=== PATIENT | female | born 1990 | race Caucasian/White ===

== ENCOUNTER 2018-04-02 09:29 | Emergency (ER) | payer BC, OTHER ==
--- NOTE | 2018-04-02 09:46 | ER Document Report ---
ED Medical Screen (RME) - General Chief Complaint: Abdominal Pain Stated Complaint: STOMACH PAIN Time Seen by Provider: 04/02/18 09:35 Notes: 27-year-old female with history of endometriosis. Had surgery 6 months ago. Had appendix taken out as well as bilateral inguinal hernia and removal of endometrial tissue. Followed by classroom technology coach in [place]. Surgery was in [place]. Over the last several weeks has been noticing increased pain, change in bowel patterns and did notice some blood in her stool. Also having some right upper quadrant pain intermittent right-sided chest pain but no pain at this time. Denies any shortness of breath. No prior history of DVT or pulmonary embolism. I have greeted and performed a rapid initial assessment of this patient. A comprehensive ED assessment and evaluation of the patient, analysis of test results and completion of the medical decision making process will be conducted by additional ED providers. TRAVEL OUTSIDE OF THE [place] IN LAST 30 DAYS: No - Related Data Allergies/Adverse Reactions: drospirenone [From DEXTER 28] Allergy (Intermediate, Verified 04/02/18 09:31) rash ethinyl estradiol [From DEXTER 28] Allergy (Intermediate, Verified 04/02/18 09:31) rash tramadol [Tramadol] Allergy (Intermediate, Verified 04/02/18 09:31) rash Past Medical History Past Surgical History: Reports: Hx Gynecologic Surgery - laproscopy for endometriosis - Immunizations Hx Diphtheria, Pertussis, Tetanus Vaccination: No Review of Systems - Review of Systems Constitutional: denies: Fever, Malaise, Weakness Cardiovascular: Chest pain. denies: Palpitations, Heart racing Respiratory: denies: Cough, Hurts to breathe, Short of breath Gastrointestinal: Abdominal pain, Constipation, Rectal bleeding Genitourinary: denies: Burning, Dysuria, Discharge Female Genitourinary: See HPI Neurological/Psychological: See HPI Physical Exam - Vital signs Vitals: Temp Pulse Resp BP Pulse Ox 98.1 F 84 16 135/98 H 98 04/02/18 09:36 04/02/18 09:36 04/02/18 09:36 04/02/18 09:36 04/02/18 09:36 Interpretation: Normal - Respiratory Respiratory status: No respiratory distress Chest status: Nontender Breath sounds: Normal Chest palpation: Normal - Cardiovascular Rhythm: Regular Heart sounds: Normal auscultation Murmur: No - Abdominal Inspection: Normal Distension: No distension Bowel sounds: Normal Tenderness: Nontender Organomegaly: No organomegaly - Extremities General upper extremity: Normal inspection, Nontender, Normal color, Normal ROM , Normal temperature General lower extremity: Normal inspection, Nontender, Normal color, Normal ROM , Normal temperature, Normal weight bearing. No: Colin's sign Course - Vital Signs Vital signs: Temp Pulse Resp BP Pulse Ox 98.1 F 84 16 135/98 H 98 04/02/18 09:36 04/02/18 09:36 04/02/18 09:36 04/02/18 09:36 04/02/18 09:36 Doctor's Discharge - Discharge Referrals: SARINA BATISTA MD [Primary Care Provider] - Follow up as needed
--- NOTE | 2018-04-02 10:05 | ER Document Report ---
ED GI/ - General Chief Complaint: Abdominal Pain Stated Complaint: STOMACH PAIN Time Seen by Provider: 04/02/18 09:35 Mode of Arrival: Ambulatory Information source: Patient Notes: 27-year-old female with history of endometriosis. Had surgery 6 months ago. Had appendix taken out as well as bilateral inguinal hernia and removal of endometrial tissue with a sacral neurectomy. Followed by parquet floor layer in [place]. Surgery was in [place]. Patient states that her surgery was October 06. She states that she has had abdominal pain secondary to endometriosis since she was 7 years of age. Patient states since her surgery she has developed some mild epigastric intermittent abdominal discomfort. Patient states she was diagnosed by endoscopy 5 years ago with a gastric ulcer. She states she received treatment for this. She states some mild radiation to her back. She states slightly worse with food. She states a mild radiation to her chest. She states nausea without vomiting or fevers. She denies any diarrhea. Patient states she has a history of hemorrhoids and constipation and saw some blood encircling a light brown stool earlier today. She denies any pain with defecation. She denies any dysuria, lower abdominal masses, or fevers. TRAVEL OUTSIDE OF THE [place] IN LAST 30 DAYS: No - HPI Patient complains to provider of: Abdominal pain Onset: Other - See above Quality of pain: Achy, Other - See above Severity at maximum: Moderate Severity in ED: Mild Pain Level: 1 Context: Other - See above Location: Other - See above Vaginal bleeding (Compared to normal period): None OB ultrasound done: No vitamins taken: No Sexual history: Active Associated symptoms: Other - See above Exacerbated by: Denies Relieved by: Denies Similar symptoms previously: Yes Recently seen / treated by doctor: Yes - Related Data Allergies/Adverse Reactions: drospirenone [From DEXTER 28] Allergy (Intermediate, Verified 04/02/18 09:31) rash ethinyl estradiol [From DEXTER 28] Allergy (Intermediate, Verified 04/02/18 09:31) rash tramadol [Tramadol] Allergy (Intermediate, Verified 04/02/18 09:31) rash Past Medical History - General Information source: Patient - Social History Smoking Status: Never Smoker Cigarette use (# per day): No Chew tobacco use (# tins/day): No Smoking Education Provided: No Frequency of alcohol use: None Drug Abuse: None Family History: Reviewed & Not Pertinent Patient has suicidal ideation: No Patient has homicidal ideation: No Renal/ Medical History: Denies: Hx Peritoneal Dialysis Past Surgical History: Reports: Hx Gynecologic Surgery - laproscopy for endometriosis - Immunizations Hx Diphtheria, Pertussis, Tetanus Vaccination: No Review of Systems - Review of Systems Constitutional: denies: Fever EENT: denies: Eye discharge, Nose discharge Respiratory: denies: Short of breath Gastrointestinal: denies: Vomiting Genitourinary: denies: Dysuria Musculoskeletal: denies: Leg swelling Skin: Other - no hives. denies: Rash Neurological/Psychological: Other - no slurred speech -: Yes All other systems reviewed and negative Physical Exam - Vital signs Vitals: Temp Pulse Resp BP Pulse Ox 98.1 F 84 16 135/98 H 98 04/02/18 09:36 04/02/18 09:36 04/02/18 09:36 04/02/18 09:36 04/02/18 09:36 Notes: Reviewed vital signs and nursing note as charted by RN. CONSTITUTIONAL: Alert and oriented and responds appropriately to questions. Well -appearing; well-nourished HEAD: Normocephalic; atraumatic EYES: Sclerae non-icteric CARD: Regular rate and rhythm; no murmurs RESP: Normal chest excursion without splinting or tachypnea; breath sounds clear and equal bilaterally ABD/GI: Normal bowel sounds; non-distended; soft, mild tenderness to the epigastric region without any obvious rebound or guarding. Negative Kim sign. Minimal tenderness to bilateral lower quadrants without any obvious palpable masses or swelling noted. GI/: Patient has no obvious rectal perirectal lesions. No gross blood present. Hemoccult has been sent BACK: The back appears normal and is non-tender to palpation EXT: Normal ROM in all joints; non-tender to palpation, no edema SKIN: Normal color for age and race; warm; no acute lesions noted NEURO: Moves all extremities equally; Motor and sensory function intact PSYCH: The patient's mood and manner are appropriate. Grooming and personal hygiene are appropriate. Course - Re-evaluation Re-evalutation: 04/02/18 10:09 Given the above history and physical examination with the extensive history of multiple abdominal sources of pain, but the pain mostly pronounced in the epigastric region since her surgery in September, without fevers, no rebound or guarding, abdominal exam as recorded, we will obtain basic labs, liver panel, lipase, level, right upper quadrant ultrasound, and provide pain medications. Given the young age, long history as recorded, no focal lower abdominal tenderness, multiple CT scans in the past, I have discussed with the patient the risks and benefits of CT scan at this time. She would like to forego the CT scan and I believe that this is a reasonable option using shared decision making. 04/02/18 10:31 EKG shows heart of 72, normal sinus rhythm, normal axis, no ST elevation or depression. 04/02/18 11:47 Labs including liver panel, lipase, and urine analysis were unremarkable. Ultrasound of the abdomen and pelvis shows no obvious gallbladder pathology. Patient is requesting a CT scan of the abdomen and pelvis given her concern with her previous past history. 04/02/18 14:47 CT scan of the abdomen and pelvis again shows no obvious pathology. Repeat abdominal examination shows no focal tenderness. Patient states the pain is improved. Patient has a primary care physician and an UNDERWATER ROBOTICIST. Patient will be discharged home with strict return precautions. - Vital Signs Vital signs: Temp Pulse Resp BP Pulse Ox 98.1 F 84 16 135/98 H 98 04/02/18 09:36 04/02/18 09:36 04/02/18 09:36 04/02/18 09:36 04/02/18 09:36 - Laboratory Result Diagrams: 04/02/18 10:05 04/02/18 10:05 Laboratory results interpreted by me: 04/02/18 04/02/18 04/02/18 09:55 10:05 10:05 Hgb 16.2 H AST 48 H ALT 66 H Ur Leukocyte Esterase TRACE H Discharge - Discharge Clinical Impression: Abdominal pain Qualifiers: Abdominal location: unspecified location Qualified Code(s): R10.9 - Unspecified abdominal pain Condition: Good Disposition: HOME, SELF-CARE Additional Instructions: Come back immediately for any increased pain, change in location or quality of pain, fevers or vomiting, or any other acute problems. Please make sure that she follow-up with the primary care physician and UNDERWATER ROBOTICIST as we have discussed. Prescriptions: Hydrocodone/Acetaminophen [[place] 5-325 Tablet] 1 each PO Q6 PRN #12 tablet PRN Reason: For Pain Referrals: SARINA BATISTA MD [ACTIVE STAFF] - Follow up as needed
[2018-04-02] MEDS ORDERED: ONDANSETRON HCL INJ/PF 4 MG/2 ML SDV IV ONE ×2 (10:10→13:06)
[2018-04-02] MEDS ORDERED: MORPHINE SULFATE 10 MG/ML INJ IV ONE ×2 (10:10→13:43)
[2018-04-02] MEDS ORDERED: METOCLOPRAMIDE HCL ORAL SOLN 10 MG/10 ML UDCUP PO ONE (10:11)
[2018-04-02] MEDS ORDERED: LIDOCAINE 2% VISCOUS SOLN 20 ML UDCUP PO ONE (10:11)
[2018-04-02] MEDS ORDERED: MAG HYDROX/AL HYDROX/SIMETH SUSP 30 ML UDCUP PO ONE (10:11)
[2018-04-02 10:24] LABS: APPEARANCE,URINE CLEAR; BILIRUBIN,URINE NEGATIVE (NEGATIVE); GLUCOSE, URINE NEGATIVE (NEGATIVE); KETONES,URINE NEGATIVE (NEGATIVE); LEUKOCYTE ESTERASE,URINE TRACE (NEGATIVE); NITRITE,URINE NEGATIVE (NEGATIVE); PROTEIN,URINE NEGATIVE (NEGATIVE); URINE SPECIFIC GRAVITY 1.002; UROBILINOGEN,URINE NEGATIVE mg/dL (<2.0)
[2018-04-02 10:26] LABS: COLOR,URINE COLORLESS
[2018-04-02 10:33] LABS: ABSOLUTE EOSINOPHILS # (AUTO) 0.1 10^3/uL (0.0-0.6); ABSOLUTE LYMPHOCYTES (AUTO) 1.5 10^3/uL (0.5-4.7); ABSOLUTE MONOCYTES (AUTO) 0.4 10^3/uL (0.1-1.4); ABSOLUTE NEUT (AUTO) 4.7 10^3/uL (1.7-8.2); BASOPHILS % (AUTO) 0.5 % (0-2); EOSINOPHILS % (AUTO) 1.3 % (0-6); HEMATOCRIT 46.9 % (36.0-47.0); HEMOGLOBIN 16.2 g/dL (12.0-15.5); LYMPHOCYTES % (AUTO) 22.4 % (13-45); MEAN CORPUSCULAR HEMOGLOBIN 30.8 pg (27.0-33.4); MEAN CORPUSCULAR HGB CONC 34.5 g/dL (32.0-36.0); MEAN CORPUSCULAR VOLUME 89 fl (80-97); MONOCYTES % (AUTO) 6.2 % (3-13); PLATELET COUNT 278 10^3/uL (150-450); RED BLOOD COUNT 5.25 10^6/uL (3.72-5.28); RED CELL DISTRIBUTION WIDTH 12.7 % (11.5-14.0); SEGMENTED NEUTROPHILS % (AUTO) 69.6 % (42-78); TOTAL CELLS COUNTED % (AUTO) 100 %; WHITE BLOOD COUNT 6.7 10^3/uL (4.0-10.5)
[2018-04-02 10:56] LABS: ALANINE AMINOTRANSFERASE 66 U/L (9-52); ALBUMIN 4.9 g/dL (3.5-5.0); ALKALINE PHOSPHATASE 71 U/L (38-126); ANION GAP 15 (5-19); ASPARTATE AMINO TRANSFERASE 48 U/L (14-36); BILIRUBIN,DIRECT 0.4 mg/dL (0.0-0.4); BILIRUBIN,TOTAL 0.6 mg/dL (0.2-1.3); BLOOD UREA NITROGEN 10 mg/dL (7-20); CALCIUM 10.2 mg/dL (8.4-10.2); CARBON DIOXIDE 24 mmol/L (22-30); CHLORIDE 105 mmol/L (98-107); GLUCOSE 105 mg/dL (75-110); LIPASE 129.3 U/L (23-300); POTASSIUM 4.3 mmol/L (3.6-5.0); SODIUM 144.2 mmol/L (137-145); TOTAL PROTEIN 8.1 g/dL (6.3-8.2)
--- NOTE | 2018-04-02 11:16 | RADIOLOGY REPORT (SQ) ---
EXAM DESCRIPTION: U/S ABDOMEN LIMITED W/O DOP COMPLETED DATE/TIME: 04/02/2018 11:03 am REASON FOR STUDY: 7, abdominal pain COMPARISON: None. TECHNIQUE: Dynamic and static grayscale images acquired of the abdomen and recorded on PACS. Additio christopher selected color Doppler and spectral images recorded. LIMITATIONS: None. FINDINGS: PANCREAS: No masses. Visualized pancreatic duct normal caliber. LIVER: 16.1 cm. Normal echotexture. No masses. LIVER VASCULATURE: Normal directional flow of the main portal vein and hepatic veins. GALLBLADDER: No stones. Normal wall thickness. No pericholecystic fluid. ULTRASOUND-DETECTED CHACON'S SIGN: Negative. INTRAHEPATIC DUCTS AND COMMON DUCT: CBD and intrahepatic ducts normal caliber. No filling defects. INFERIOR VENA CAVA: Patent. AORTA: No aneurysm. RIGHT KIDNEY: Normal size, 10.7 cm. Normal echogenicity. No solid or suspicious masses. No hydroneph rosis. No calcifications. PERITONEAL AND RIGHT PLEURAL SPACE: No ascites or effusions. OTHER: No other significant findings. IMPRESSION: NORMAL RIGHT UPPER QUADRANT ULTRASOUND. TECHNICAL DOCUMENTATION: JOB ID: [id number] [employer]- All Rights Reserved Reading location - IP/workstation name: [email or web address]
--- NOTE | 2018-04-02 13:44 | RADIOLOGY REPORT (SQ) ---
EXAM DESCRIPTION: CT ABD/PELVIS WITH IV ONLY COMPLETED DATE/TIME: 04/02/2018 1:31 pm REASON FOR STUDY: 7, abdominal pain; h/o endometriosis/inguinal danay COMPARISON: None. TECHNIQUE: CT scan of the abdomen and pelvis performed using helical scanning technique with dynamic intravenous contrast injection. No oral contrast. Images reviewed with lung, soft tissue, and bone windows. Reconstructed coronal and sagittal MPR images reviewed. Delayed images for evaluation of the urinary system also acquired. All images stored on PACS. All CT scanners at this facility use dose modulation, iterative reconstruction, and/or weight based d osing when appropriate to reduce radiation dose to as low as reasonably achievable (ALARA). [facility]: Dose Right [facility]: CareDose [facility]: Dose Right [facility]: Teradose 4D [facility]: Intellecap CONTRAST TYPE AND DOSE: contrast/concentration: Isovue 370.00 mg/ml; Total Contrast Delivered: 78.0 ml; Total Saline Delivered: 65.0 ml RENAL FUNCTION: BUN 10 creatinine 0.69. RADIATION DOSE: CT Rad equipment meets quality standard of care and radiation dose reduction techniq ues were employed. CTDIvol: 6.2 - 8.3 mGy. DLP: 828 mGy-cm.. LIMITATIONS: None. FINDINGS: LOWER CHEST: No significant findings. No nodules or infiltrates. LIVER: Normal size. No masses. No dilated ducts. SPLEEN: Normal size. No focal lesions. PANCREAS: No masses. No significant calcifications. No adjacent inflammation or peripancreatic fluid collections. Pancreatic duct not dilated. GALLBLADDER: No identified stones by CT criteria. No inflammatory changes to suggest cholecystitis. ADRENAL GLANDS: No significant masses or asymmetry. RIGHT KIDNEY AND URETER: No solid masses. No significant calcifications. No hydronephrosis or hyd roureter. LEFT KIDNEY AND URETER: No solid masses. No significant calcifications. No hydronephrosis or hydr oureter. AORTA AND VESSELS: No aneurysm. No dissection. Renal arteries, SMA, celiac without stenosis. RETROPERITONEUM: No retroperitoneal adenopathy, hemorrhage or masses. BOWEL AND PERITONEAL CAVITY: No masses or inflammatory changes. No free fluid or peritoneal masses. APPENDIX: Surgically absent. PELVIS: No mass. No free fluid. Normal bladder. ABDOMINAL WALL: No masses. No hernias. BONES: No significant or acute findings. OTHER: No other significant finding. IMPRESSION: NO SIGNIFICANT OR ACUTE FINDING IN THE ABDOMEN OR PELVIS ON CT SCAN WITH IV CONTRAST. TECHNICAL DOCUMENTATION: JOB ID: [id number] Quality ID # [id number]: Final reports with documentation of one or more dose reduction techniques (e.g., Au tomated exposure control, adjustment of the mA and/or kV according to patient size, use of iterative reconstruction technique) 2010 [employer]- All Rights Reserved Reading location - IP/workstation name: [email or web address]
[2018-04-02 15:11] VITALS: BP 111/77
--- NOTE | 2018-04-02 21:44 | EKG REPORT ---
SEVERITY:- BORDERLINE ECG - SINUS RHYTHM PROBABLE LEFT ATRIAL ABNORMALITY : Confirmed by: Lisa Casper MD 02-Apr-2018 21:43:34
== END 2018-04-02 15:12 | disposition home or self-care (01) ==
LOC: ER 09:29
DX: R10.9 Unspecified abdominal pain (principal); Z88.6 Allergy status to analgesic agent
CPT/HCPCS: 93005; 96376; 99284; 96374; 96375; 36415; 83690; 85025; 82272; 81025; 80053; 81001; 76705; 74177; 93010; J3490; J2270; J2405

== ENCOUNTER → 2018-08-11 | Outpatient (CLI) | payer BC, MEDICARE ==
--- NOTE | 2018-08-11 15:11 | RADIOLOGY REPORT (SQ) ---
EXAM DESCRIPTION: NM HIDA SCAN WITH CCK COMPLETED DATE/TIME: 08/11/2018 2:44 pm REASON FOR STUDY: EPIGASTRIC PAIN (R10.13) R10.13 EPIGASTRIC PAIN COMPARISON: None. RADIONUCLIDE AND DOSE: DOSAGE RADIONUCLIDE: 5.3 millicuries Tc99m Mebrofenin. DOSAGE CCK: 1.5 micrograms. DOSAGE MORPHINE: Not required. The route of agent administration: Intravenous TECHNIQUE: Serial imaging right upper quadrant up to 60 minutes following injection of radionuclide. CCK injected after gallbladder visualized. LIMITATIONS: None. FINDINGS: LIVER: Normal visualization without areas of photopenia. INTRA AND EXTRAHEPATIC BILE DUCTS: Normal accumulation of activity. GALLBLADDER: Normal visualization. Calculated Ejection Fraction of 22%. Below the normal value of 35 % or greater. PHYSICAL RESPONSE: Patients presenting complaint was reproduced. OTHER: No other significant finding. IMPRESSION: LOW GALLBLADDER EJECTION FRACTION. EVIDENCE FOR BILIARY DYSKINESIS. NO CYSTIC OR COMMO N DUCT OBSTRUCTION. TECHNICAL DOCUMENTATION: JOB ID: [id number] [employer]- All Rights Reserved Reading location - IP/workstation name: [email or web address]
== END ==
LOC: RAD 12:27
PROVIDERS: ATTEND Physician Assistant
DX: R10.13 Epigastric pain (principal)
CPT/HCPCS: 78227; J2805; A9537; Q9969

== ENCOUNTER → 2019-07-17 | Outpatient (CLI) | payer BC | LOC: LAB 18:10 | PROVIDERS: ATTEND Nurse Practitioner Family | DX: R30.0 Dysuria (principal) | CPT/HCPCS: 87086 ==

== ENCOUNTER 2019-07-31 14:03 | Emergency (ER) | payer BC ==
--- NOTE | 2019-07-31 14:20 | ER Document Report ---
ED Medical Screen (RME) - General Chief Complaint: Chest Wall Injury Stated Complaint: BREAST PAIN/ INJURY Time Seen by Provider: 07/31/19 14:14 Primary Care Provider: JORGE COYNE NP [Primary Care Provider] - Follow up as needed Notes: 28-year-old female presented to ED for complaint of pain and injury to the left breast and chest. She states she was trying to get on her horse when she moved around 9:00 this morning. Her foot was caught in the stirrup dragging her on the ground and the horse stepped on her left breast and and chest. She states she also has hip and back pain as well as chest pain with difficulty breathing due to the pain in the left chest. She states the pain is a 3 out of 5. She states she took 400 mg of ibuprofen at about 11:00. Patient is alert oriented respirations regular nonlabored speaking in full sentences. Right lower abdomen is also becoming more more painful. She had a inguinal hernia repair in December 2018 in the area where she is now hurting. The left bruise is very ecchymotic and swollen. I have greeted and performed a rapid initial assessment of this patient. A comprehensive ED assessment and evaluation of the patient, analysis of test results and completion of medical decision making process will be conducted by an additional ED providers. TRAVEL OUTSIDE OF THE [place] IN LAST 30 DAYS: No - Related Data Allergies/Adverse Reactions: etonogestrel [From NuvaRing] Allergy (Severe, Verified 07/31/19 14:13) Rash shellfish derived Allergy (Severe, Verified 07/31/19 14:13) Swelling of Throat drospirenone [From DEXTER 28] Allergy (Intermediate, Verified 04/02/18 09:31) rash ethinyl estradiol [From DEXTER 28] Allergy (Intermediate, Verified 04/02/18 09:31) rash tramadol [Tramadol] Allergy (Intermediate, Verified 04/02/18 09:31) rash Home Medications: zyrtec, flonase Past Medical History Renal/ Medical History: Denies: Hx Peritoneal Dialysis Past Surgical History: Reports: Hx Gynecologic Surgery - laproscopy for endometriosis - Immunizations Hx Diphtheria, Pertussis, Tetanus Vaccination: No Physical Exam - Vital signs Vitals: Temp Pulse Resp BP Pulse Ox 98.2 F 93 18 133/86 H 100 07/31/19 14:11 07/31/19 14:11 07/31/19 14:11 07/31/19 14:11 07/31/19 14:11 Course - Vital Signs Vital signs: Temp Pulse Resp BP Pulse Ox 98.2 F 93 18 133/86 H 100 07/31/19 14:11 07/31/19 14:11 07/31/19 14:11 07/31/19 14:11 07/31/19 14:11 Doctor's Discharge - Discharge Referrals: JORGE COYNE NP [Primary Care Provider] - Follow up as needed
--- NOTE | 2019-07-31 14:55 | RADIOLOGY REPORT (SQ) ---
EXAM DESCRIPTION: RIBS LEFT W/PA CHEST COMPLETED DATE/TIME: 07/31/2019 2:42 pm REASON FOR STUDY: horse stepped on her left chest and breast Left anterior chest wall pain, swelling and bruising. COMPARISON: None. TECHNIQUE: Frontal view of the chest and additional views of the left ribs acquired. NUMBER OF VIEWS: Three view. LIMITATIONS: None. FINDINGS: FRONTAL CXR: No pneumothorax. No pleural effusion. No atelectasis or infiltrates. RIBS: No displaced left rib fractures. IMPRESSION: NO PNEUMOTHORAX. NO DISPLACED LEFT RIB FRACTURES. COMMENT: SITE OF TRAUMA/COMPLAINT MARKED/STAMP COMPLETED: NO. TECHNICAL DOCUMENTATION: JOB ID: [id number] [place]-64 2010 [employer]- All Rights Reserved Reading location - IP/workstation name: [email or web address]
[2019-07-31 14:57] LABS: APPEARANCE,URINE SLIGHTLY-CLOUDY; BILIRUBIN,URINE NEGATIVE (NEGATIVE); COLOR,URINE YELLOW; GLUCOSE, URINE NEGATIVE (NEGATIVE); KETONES,URINE 20 mg/dL (NEGATIVE); LEUKOCYTE ESTERASE,URINE MODERATE (NEGATIVE); NITRITE,URINE NEGATIVE (NEGATIVE); PROTEIN,URINE NEGATIVE (NEGATIVE); URINE SPECIFIC GRAVITY 1.025; UROBILINOGEN,URINE NEGATIVE mg/dL (<2.0)
[2019-07-31 14:59] LABS: ABSOLUTE BASOPHILS # (AUTO) 0.1 10^3/uL (0.0-0.2); ABSOLUTE EOSINOPHILS # (AUTO) 0.2 10^3/uL (0.0-0.6); ABSOLUTE LYMPHOCYTES (AUTO) 3.4 10^3/uL (0.5-4.7); ABSOLUTE MONOCYTES (AUTO) 1.1 10^3/uL (0.1-1.4); ABSOLUTE NEUT (AUTO) 13.6 10^3/uL (1.7-8.2); BASOPHILS % (AUTO) 0.5 % (0-2); EOSINOPHILS % (AUTO) 0.9 % (0-6); HEMATOCRIT 45.1 % (36.0-47.0); HEMOGLOBIN 15.1 g/dL (12.0-15.5); LYMPHOCYTES % (AUTO) 18.5 % (13-45); MEAN CORPUSCULAR HEMOGLOBIN 29.5 pg (27.0-33.4); MEAN CORPUSCULAR HGB CONC 33.4 g/dL (32.0-36.0); MEAN CORPUSCULAR VOLUME 88 fl (80-97); MONOCYTES % (AUTO) 6.2 % (3-13); PLATELET COUNT 307 10^3/uL (150-450); RED CELL DISTRIBUTION WIDTH 12.7 % (11.5-14.0); SEGMENTED NEUTROPHILS % (AUTO) 73.9 % (42-78); TOTAL CELLS COUNTED % (AUTO) 100 %; WHITE BLOOD COUNT 18.4 10^3/uL (4.0-10.5)
[2019-07-31 15:32] LABS: ALBUMIN 4.7 g/dL (3.5-5.0); ALKALINE PHOSPHATASE 77 U/L (38-126); ANION GAP 11 (5-19); ASPARTATE AMINO TRANSFERASE 33 U/L (14-36); BILIRUBIN,DIRECT 0.1 mg/dL (0.0-0.4); BILIRUBIN,TOTAL 0.6 mg/dL (0.2-1.3); BLOOD UREA NITROGEN 13 mg/dL (7-20); CARBON DIOXIDE 23 mmol/L (22-30); CHLORIDE 106 mmol/L (98-107); GLUCOSE 89 mg/dL (75-110); POTASSIUM 4.4 mmol/L (3.6-5.0); TOTAL PROTEIN 7.8 g/dL (6.3-8.2)
--- NOTE | 2019-07-31 15:36 | ER Document Report ---
ED General <LEXA BECKER Vivian - Last Filed: 07/31/19 15:36> - General TRAVEL OUTSIDE OF THE [place] IN LAST 30 DAYS: No - Related Data Home Medications: zyrtec, flonase <KYRIE PERSAUD - Last Filed: 07/31/19 19:51> - General Chief Complaint: Chest Wall Injury Stated Complaint: BREAST PAIN/ INJURY Time Seen by Provider: 07/31/19 14:14 Primary Care Provider: JORGE COYNE NP [NO LOCAL MD] - Follow up as needed - [facility] Notes: Patient is a 28-year-old female with history of endometriosis who presents complaining of left breast pain, swelling, bruising, and abdominal pain primarily to her right upper quadrant and lower quadrants bilaterally after injury by a horse that occurred a few hours ago. Patient states that she placed her left foot into the stirrup and started to get on the horse when she fell off and the horse tractor for 6 feet. Patient states that the horse also stomped on her left breast. She does not recall any other specifics to the incident as it happened very quickly. Patient states that she has had increased bruising and swelling throughout the day. Patient states that she does have some nausea without vomiting. She did not hit her head or lose conscious. Patient states that she did urinate once since and did not notice any blood. Patient has noticed some soreness to her pelvis area as well. Denies any headache, fever, head injury, changes in vision/speech/mentation/hearing, URI, sore throat, chest pain, palpitations, syncope, cough, shortness of breath, wheeze, dyspnea, vomiting/diarrhea, urinary retention, dysuria, hematuria, loss of control of bowel or bladder, numbness/tingling, saddle anesthesia, muscle paralysis/weakness, or rash. (KYRIE PERSAUD) - Related Data Allergies/Adverse Reactions: etonogestrel [From NuvaRing] Allergy (Severe, Verified 07/31/19 14:13) Rash shellfish derived Allergy (Severe, Verified 07/31/19 14:13) Swelling of Throat drospirenone [From DEXTER 28] Allergy (Intermediate, Verified 04/02/18 09:31) rash ethinyl estradiol [From DEXTER 28] Allergy (Intermediate, Verified 04/02/18 09:31) rash tramadol [Tramadol] Allergy (Intermediate, Verified 04/02/18 09:31) rash Past Medical History - Social History Smoking Status: Never Smoker Chew tobacco use (# tins/day): No Frequency of alcohol use: None Drug Abuse: None Family History: Reviewed & Not Pertinent Patient has suicidal ideation: No Patient has homicidal ideation: No Renal/ Medical History: Denies: Hx Peritoneal Dialysis Past Surgical History: Reports: Hx Gynecologic Surgery - laproscopy for endometriosis - Immunizations Hx Diphtheria, Pertussis, Tetanus Vaccination: No <KYRIE PERSAUD - Last Filed: 07/31/19 19:51> Review of Systems - Review of Systems -: Yes All other systems reviewed and negative <KYRIE PERSAUD - Last Filed: 07/31/19 19:51> Physical Exam <KYRIE PERSAUD - Last Filed: 07/31/19 19:51> - Vital signs Vitals: Temp Pulse Resp BP Pulse Ox 98.2 F 93 18 133/86 H 100 07/31/19 14:11 07/31/19 14:11 07/31/19 14:11 07/31/19 14:11 07/31/19 14:11 - Notes Notes: PHYSICAL EXAMINATION: accompanied by female nursemoe GENERAL: Well-appearing, well-nourished and in no acute distress. A&Ox4. Answers questions appropriately. HEAD: Atraumatic, normocephalic. Non-tender. No ceron sign EYES: Pupils equal round and reactive to light, extraocular movements intact, sclera anicteric, conjunctiva are normal. No raccoon eyes/entrapment ENT: EAC clear b/l. TM's intact b/l without erythema, fluid, or perforation. Nares patent and without discharge. oropharynx clear without exudates. No tonsilar hypertrophy or erythema. Moist mucous membranes. No sinus tenderness. No hemotympanum/CSF discharge. NECK: Normal range of motion, supple without lymphadenopathy. No rigidity. No midline tenderness. Chest: left breast is ecchymotic, tender, and swollen. LUNGS: Breath sounds clear to auscultation bilaterally and equal. No wheezes rales or rhonchi. HEART: Regular rate and rhythm without murmurs, rubs, gallops. ABDOMEN: Soft, nondistended abdomen. No guarding, no rebound. Normal bowel sounds present. No CVA tenderness bilaterally. No ecchymosis. + tenderness to palp RUQ and lower abd. Musculoskeletal: Ext b/l: FROM to passive/active. Strength 5+/5. No deficits noted. Pelvis stable; although, mild tenderness L>R. No other bony tenderness of extremities Back: FROM to passive/active. Strength 5+/5. No vertebral point tenderness, stepoffs, or deformities. No other bony tenderness or ecchymosis. Extremities: No cyanosis, clubbing, or edema b/l. Peripheral pulses 2+. Capillary refill less than 2 seconds. NEUROLOGICAL: NIH 0. GCS 15. Cranial nerves grossly intact. Normal speech. Normal sensory, motor exams. Reflexes 2+ b/l. VINI's negative. Pronator drift negative. Heel/nance, finger/nose wnl. PSYCH: Normal mood, normal affect. SKIN: Warm, Dry, normal turgor, no rashes or lesions noted. (KYRIE PERSAUD) Course - Laboratory Result Diagrams: 07/31/19 14:36 07/31/19 14:36 <LEXA BECKER - Last Filed: 07/31/19 15:36> - Laboratory Result Diagrams: 07/31/19 14:36 07/31/19 14:36 <KYRIE PERSAUD - Last Filed: 07/31/19 19:51> - Re-evaluation Re-evalutation: 07/31/19 15:36 Patient seen and evaluated by myself as well as the PA. Agree with plan of care. Patient currently states she does not require any further pain medication. She has a large amount of ecchymosis to her left breast with progressive swelling and bruising in the emergency room. Patient also has tenderness in her right upper quadrant. There is no abdominal ecchymosis. No thoracic or lumbar tenderness. No cervical spine tenderness. No focal neurologic deficits. Recommend CT imaging given the mechanism of injury. (LEXA BECKER) 07/31/19 15:42 Dr. Becker was consulted who also eval'd the patient. We will perform CT of chest/abd with IV contrast to further evaluate. Pt does not want anything for pain at this time. I will give her nausea medicine. 07/31/19 19:47 Patient is an afebrile, well-hydrated, 28-year-old female who presents with a left breast contusion, right lower leg pain, and nonspecific right upper quadrant abdominal pain. I do suspect inflammatory/benign at this time. Reevaluation of the patient's left breast did show slight increase in ecchymosis, but no increase in any induration/firmness/pain. Vitals are otherwise acceptable without significant tachycardia, tachypnea, or hypoxia. PE is otherwise unremarkable for any neurovascular compromise, obvious tendon/leg rupture, obvious fracture/dislocation. Imaging was unremarkable aside from hematoma noted to the left breast. Labs acceptable. No further work-up warranted. Low suspicion for any other systemic emergent condition at this present time. Patient aware that condition can change and she needs to monitor symptoms very closely and seek medical attention with any acute changes. Patient is aware that if any worsening or rapidly changing swelling bruising to the left breast that she needs to apply pressure and come to [facility] department immediately. Recheck with your PCM in 2 to 3 days otherwise. Return to the ED with any other worsening/concerning symptoms. Patient is in agreement. (KYRIE PERSAUD) - Vital Signs Vital signs: Temp Pulse Resp BP Pulse Ox 98.2 F 93 18 133/86 H 100 07/31/19 14:11 07/31/19 14:11 07/31/19 14:11 07/31/19 14:11 07/31/19 14:11 - Laboratory Laboratory results interpreted by me: 07/31/19 07/31/19 14:36 14:36 WBC 18.4 H Absolute Neuts (auto) 13.6 H Urine Ketones 20 H Ur Leukocyte Esterase MODERATE H Discharge <LEXA BECKER - Last Filed: 07/31/19 15:36> <KYRIE PERSAUD - Last Filed: 07/31/19 19:51> - Discharge Clinical Impression: Right leg pain Contusion of left breast Qualifiers: Encounter type: initial encounter Qualified Code(s): S20.02XA - Contusion of left breast, initial encounter Abdominal pain Qualifiers: Abdominal location: generalized Qualified Code(s): R10.84 - Generalized abdominal pain Condition: Stable Disposition: HOME, SELF-CARE Additional Instructions: If you are noticing any worsening rapid swelling or bruising to the left breast, then apply pressure and come back to the emergency department. Rest, Ice, Compression, Elevation Tylenol/ibuprofen as needed Light stretches daily Strength exercises as able Moist heat and massage may help F/u with your PCP in 3-5 days for a recheck Consider consult(s) with Orthopedics/physical therapy for ongoing/worsening symptoms Return to the ED with any worsening symptoms and/or development of fever, headache, chest pain, palpitations, syncope, shortness of breath, trouble breathing, abdominal pain, n/v/d, muscle weakness/paralysis, numbness/tingling, swelling, redness, or other worsening symptoms that are concerning to you. Prescriptions: Hydrocodone/Acetaminophen [Malone 5-325 mg Tablet] 1 tab PO TID #15 tablet Forms: Elevated Blood Pressure Referrals: JORGE COYNE NP [NO LOCAL MD] - 08/02/19
[2019-07-31] MEDS ORDERED: ONDANSETRON HCL INJ/PF 4 MG/2 ML SDV IV ONE (15:42)
[2019-07-31] MEDS ORDERED: MORPHINE SULFATE 10 MG/ML INJ IV ONE (17:34)
--- NOTE | 2019-07-31 17:52 | RADIOLOGY REPORT (SQ) ---
EXAM DESCRIPTION: CT CHEST WITH COMPLETED DATE/TIME: 07/31/2019 5:04 pm REASON FOR STUDY: stomped by horse left breast/ecchymosis Pain left shoulder area, left chest and breast area. COMPARISON: Left rib series 07/31/2019. CT abdomen and pelvis 07/31/2019. TECHNIQUE: CT scan of the chest performed using helical scanning technique with dynamic intravenous contrast injection. Images reviewed with lung, soft tissue and bone windows. Reconstructed coronal and sagittal MPR and MIP images reviewed. All images stored on PACS. All CT scanners at this facility use dose modulation, iterative reconstruction, and/or weight based d osing when appropriate to reduce radiation dose to as low as reasonably achievable (ALARA). [facility]: Dose Right [facility]: CareDose [facility]: Dose Right [facility]: Teradose 4D [facility]: Close CONTRAST TYPE AND DOSE: 95 mL Omnipaque 350- low osmolar. RENAL FUNCTION: Creatinine 0.74 RADIATION DOSE: CT Rad equipment meets quality standard of care and radiation dose reduction techniq ues were employed. CTDIvol: 6.7 - 9.5 mGy. DLP: 1008 mGy-cm. . LIMITATIONS: None. FINDINGS: LUNGS AND PLEURA: No consolidation, pneumothorax or pleural effusion. HILAR AND MEDIASTINAL STRUCTURES: No pneumomediastinum or mediastinal hematoma. No identified masses or abnormal nodes. HEART AND VASCULAR STRUCTURES: No thoracic aortic aneurysm or acute dissection. No pericardial effus ion. HARDWARE: None in the chest. UPPER ABDOMEN: See separate report of the CT of the abdomen. THYROID AND OTHER SOFT TISSUES: No masses. No adenopathy. BONES: No displaced fracture at the sternum or ribs. OTHER: There is skin thickening at the left breast. Multiple hyperdensities are noted within left br east. IMPRESSION: Multiple hyperdensities within the left breast with overlying skin thickening, probably representing known hematoma. Clinical correlation and follow-up to resolution recommended to exclude underlying breast neoplasm. TECHNICAL DOCUMENTATION: JOB ID: [id number] RI- Quality ID # 436: Final reports with documentation of one or more dose reduction techniques (e.g., Au tomated exposure control, adjustment of the mA and/or kV according to patient size, use of iterative reconstruction technique) 2010 [employer]- All Rights Reserved Reading location - IP/workstation name: [email or web address]
--- NOTE | 2019-07-31 18:00 | RADIOLOGY REPORT (SQ) ---
EXAM DESCRIPTION: CT ABD/PELVIS WITH IV ONLY COMPLETED DATE/TIME: 07/31/2019 5:04 pm REASON FOR STUDY: abd pain, horse injury, pelvic bone pain left too COMPARISON: CT chest 07/31/2019, CT abdomen and pelvis 04/02/2018. TECHNIQUE: CT scan of the abdomen and pelvis performed using helical scanning technique with dynamic intravenous contrast injection. No oral contrast. Images reviewed with lung, soft tissue, and bone windows. Reconstructed coronal and sagittal MPR images reviewed. Delayed images for evaluation of the urinary system also acquired. All images stored on PACS. All CT scanners at this facility use dose modulation, iterative reconstruction, and/or weight based d osing when appropriate to reduce radiation dose to as low as reasonably achievable (ALARA). [facility]: Dose Right [facility]: CareDose [facility]: Dose Right [facility]: Teradose 4D [facility]: Vinobo CONTRAST TYPE AND DOSE: contrast/concentration: Isovue 350.00 mg/ml; Total Contrast Delivered: 95.0 ml; Total Saline Delivered: 71.0 ml RENAL FUNCTION: Creatinine 0.74. RADIATION DOSE: . LIMITATIONS: None. FINDINGS: LOWER CHEST: See separate report of the CT of the chest. LIVER: No laceration or subcapsular hematoma. No dilated ducts. SPLEEN: No laceration or subcapsular hematoma. PANCREAS: No significant calcifications. No adjacent inflammation or peripancreatic fluid collections . Pancreatic duct not dilated. GALLBLADDER: Surgically absent. ADRENAL GLANDS: No significant masses or asymmetry. RIGHT KIDNEY AND URETER: No laceration or subcapsular hematoma. No significant calcifications. No hydronephrosis or hydroureter. LEFT KIDNEY AND URETER: No laceration or subcapsular hematoma. No significant calcifications. No hydronephrosis or hydroureter. AORTA AND VESSELS: No abdominal aortic aneurysm or acute dissection RETROPERITONEUM: No retroperitoneal adenopathy, hemorrhage or masses. BOWEL AND PERITONEAL CAVITY: No dilated bowel loops or focal inflammatory changes. No free fluid or free air. APPENDIX: Not visualized. PELVIS: The urinary bladder is partially distended. The uterus is present 2.3 cm peripherally enhanc ing cystic area at the right adnexa may represent a corpus luteum cyst. There is trace amount of franny e pelvic fluid. ABDOMINAL WALL: No hernias. BONES: No acute fracture at the pelvis or bilateral hips. The vertebral body heights are maintained within the lumbar spine. IMPRESSION: 2.3 cm corpus luteum cyst at the right adnexa with trace amount of free pelvic fluid. O therwise, no acute findings. TECHNICAL DOCUMENTATION: JOB ID: [id number] CA-64 Quality ID # 436: Final reports with documentation of one or more dose reduction techniques (e.g., Au tomated exposure control, adjustment of the mA and/or kV according to patient size, use of iterative reconstruction technique) 2010 [employer]- All Rights Reserved Reading location - IP/workstation name: [email or web address]
[2019-07-31] MEDS ORDERED: ACETAMINOPHEN 325 MG TABLET PO ONE (18:23)
--- NOTE | 2019-07-31 19:20 | RADIOLOGY REPORT (SQ) ---
EXAM DESCRIPTION: TIBIA FIBULA RIGHT COMPLETED DATE/TIME: 07/31/2019 6:52 pm REASON FOR STUDY: lower leg pain COMPARISON: None. NUMBER OF VIEWS: Two views. TECHNIQUE: Two radiographic images acquired of the right tibia and fibula to include the knee and an kle in at least one projection. LIMITATIONS: None. FINDINGS: MINERALIZATION: Normal. BONES: No acute fracture or dislocation. SOFT TISSUES: No obvious swelling or radiopaque foreign body. IMPRESSION: No radiographic evidence for acute injury at the right tibia or fibula. TECHNICAL DOCUMENTATION: JOB ID: [id number] [place]-64 2010 [employer]- All Rights Reserved Reading location - IP/workstation name: [email or web address]
[2019-07-31] MEDS ORDERED: HYDROCODONE/ACETAMINOPHEN 5-325 MG TABLET PO ONE (20:37)
[2019-07-31 20:49] VITALS: BP 110/69
== END 2019-07-31 20:50 | disposition home or self-care (01) ==
LOC: ER 14:03
DX: S20.02XA Contusion of left breast, initial encounter (principal); R10.84 Generalized abdominal pain; M79.604 Pain in right leg; V80.010A Animal-rider injured by fall from or being thrown from horse in noncollision accident, initial encounter; Z91.013 Allergy to seafood; Z88.6 Allergy status to analgesic agent
CPT/HCPCS: 99284; 96374; 36415; 84703; 85025; 80053; 81001; 71101; 73590; 71260; 74177; J2405

== ENCOUNTER 2019-09-11 16:56 | Emergency (ER) | payer BC ==
[2019-09-11] MEDS ORDERED: ONDANSETRON HCL INJ/PF 4 MG/2 ML SDV IV ONE ×2 (17:03→18:51)
[2019-09-11] MEDS ORDERED: MORPHINE SULFATE 10 MG/ML INJ IV ONE (17:04)
--- NOTE | 2019-09-11 17:07 | ER Document Report ---
ED Medical Screen (RME) - General Chief Complaint: Post Surgical Pain Stated Complaint: CHEST PAIN/LOWER ABDOMINAL PAIN Time Seen by Provider: 09/11/19 16:59 Primary Care Provider: VARUN PAULINO DO [Primary Care Provider] - Follow up as needed Notes: Patient is a 28-year-old female who presents to the emergency department with a chief complaint of right groin pain. Patient reports on Thursday she had a rig ht open inguinal hernia repair with nerve removal at [facility]. Patient reports she has had increased pain and swelling to the site. Patient states yesterday she did notice a small amount of drainage that was clear to bloody. Patient reports nausea without vomiting. Patient reports since surgery she has had some chest pressure that is worse when she takes a deep breath. Patient reports in the past few hours she has taken Percocet and ibuprofen without much relief. TRAVEL OUTSIDE OF THE [place] IN LAST 30 DAYS: No - Related Data Allergies/Adverse Reactions: etonogestrel [From NuvaRing] Allergy (Severe, Verified 09/11/19 17:03) Rash shellfish derived Allergy (Severe, Verified 09/11/19 17:03) Swelling of Throat drospirenone [From DEXTER 28] Allergy (Intermediate, Verified 09/11/19 17:03) rash ethinyl estradiol [From DEXTER 28] Allergy (Intermediate, Verified 09/11/19 17:03) rash tramadol [Tramadol] Allergy (Intermediate, Verified 09/11/19 17:03) rash Home Medications: Percocet Past Medical History - Social History Chew tobacco use (# tins/day): No Frequency of alcohol use: None Drug Abuse: None Renal/ Medical History: Denies: Hx Peritoneal Dialysis Past Surgical History: Reports: Hx Gynecologic Surgery - laproscopy for endometriosis - Immunizations Hx Diphtheria, Pertussis, Tetanus Vaccination: No Course - Re-evaluation Re-evalutation: 09/11/19 17:06 Patient will require an abdominal and inguinal exam when in a room to determine if imaging is necessary. I will start basic labs and obtain a urinalysis. I have greeted and performed a rapid initial assessment of this patient. A comprehensive ED assessment and evaluation of the patient, analysis of test results and completion of the medical decision making process will be conducted by additional ED providers. Doctor's Discharge - Discharge Referrals: LORA,VARUN A, DO [Primary Care Provider] - Follow up as needed
[2019-09-11 17:29] LABS: ABSOLUTE EOSINOPHILS # (AUTO) 0.3 10^3/uL (0.0-0.6); ABSOLUTE LYMPHOCYTES (AUTO) 2.8 10^3/uL (0.5-4.7); ABSOLUTE MONOCYTES (AUTO) 0.5 10^3/uL (0.1-1.4); ABSOLUTE NEUT (AUTO) 5.1 10^3/uL (1.7-8.2); BASOPHILS % (AUTO) 0.3 % (0-2); EOSINOPHILS % (AUTO) 3.9 % (0-6); HEMATOCRIT 44.4 % (36.0-47.0); HEMOGLOBIN 15.2 g/dL (12.0-15.5); LYMPHOCYTES % (AUTO) 31.6 % (13-45); MEAN CORPUSCULAR HEMOGLOBIN 30.4 pg (27.0-33.4); MEAN CORPUSCULAR HGB CONC 34.2 g/dL (32.0-36.0); MEAN CORPUSCULAR VOLUME 89 fl (80-97); MONOCYTES % (AUTO) 6.1 % (3-13); PLATELET COUNT 327 10^3/uL (150-450); RED CELL DISTRIBUTION WIDTH 12.7 % (11.5-14.0); SEGMENTED NEUTROPHILS % (AUTO) 58.1 % (42-78); TOTAL CELLS COUNTED % (AUTO) 100 %; WHITE BLOOD COUNT 8.8 10^3/uL (4.0-10.5)
[2019-09-11 17:38] LABS: APPEARANCE,URINE CLEAR; BILIRUBIN,URINE NEGATIVE (NEGATIVE); COLOR,URINE YELLOW; GLUCOSE, URINE NEGATIVE (NEGATIVE); KETONES,URINE NEGATIVE (NEGATIVE); LEUKOCYTE ESTERASE,URINE NEGATIVE (NEGATIVE); NITRITE,URINE NEGATIVE (NEGATIVE); PROTEIN,URINE NEGATIVE (NEGATIVE); URINE SPECIFIC GRAVITY 1.023; UROBILINOGEN,URINE NEGATIVE mg/dL (<2.0)
[2019-09-11 17:47] LABS: ALBUMIN 4.3 g/dL (3.5-5.0); ALKALINE PHOSPHATASE 86 U/L (38-126); ANION GAP 8 (5-19); ASPARTATE AMINO TRANSFERASE 28 U/L (14-36); BILIRUBIN,DIRECT 0.1 mg/dL (0.0-0.4); BILIRUBIN,TOTAL 0.5 mg/dL (0.2-1.3); BLOOD UREA NITROGEN 13 mg/dL (7-20); CALCIUM 9.9 mg/dL (8.4-10.2); CARBON DIOXIDE 29 mmol/L (22-30); CHLORIDE 102 mmol/L (98-107); GLUCOSE 113 mg/dL (75-110); POTASSIUM 4.5 mmol/L (3.6-5.0); TOTAL PROTEIN 7.6 g/dL (6.3-8.2)
[2019-09-11] MEDS ORDERED: HYDROMORPHONE HCL INJ/PF 2 MG/ML AMPULE IV ONE (18:51)
--- NOTE | 2019-09-11 19:24 | RADIOLOGY REPORT (SQ) ---
EXAM DESCRIPTION: U/S ABDOMEN LIMITED W/O DOP COMPLETED DATE/TIME: 09/11/2019 7:15 pm REASON FOR STUDY: eval for abscess RLQ COMPARISON: None. TECHNIQUE: Dynamic and static grayscale images acquired of the localized site of clinical concern an d recorded on PACS. SITE OF CONCERN: Right lower quadrant abdominal wall. LIMITATIONS: None. FINDINGS: SKIN AND SUBCUTANEOUS TISSUES: No masses. No fluid collections. No edema. No foreign roland s. DEEP SOFT TISSUES/MUSCLES: No masses. No fluid collections. No edema. OTHER: No other significant finding. IMPRESSION: NO SOFT TISSUE MASS, FLUID COLLECTION, OR FOREIGN BODY. TECHNICAL DOCUMENTATION: JOB ID: [id number] [employer]- All Rights Reserved Reading location - IP/workstation name: [email or web address]
--- NOTE | 2019-09-11 20:23 | ER Document Report ---
HPI - HPI Time Seen by Provider: 09/11/19 16:59 Pain Level: 5 Notes: Patient is a 28-year-old female who presents to the emergency department with a chief complaint of right groin pain. Patient reports on Thursday she had a right open inguinal hernia repair with nerve removal at [facility]. Patient reports she has had increased pain and swelling to the site. Patient states yesterday she did notice a small amount of drainage that was clear to bloody. Patient reports nausea without vomiting. Patient reports in the past few hours she has taken Percocet and ibuprofen without much relief. - CARDIOVASCULAR Cardiovascular: REPORTS: Chest pain - REPRODUCTIVE Reproductive: DENIES: : Past Medical History - General Information source: Patient - Social History Smoking Status: Never Smoker Chew tobacco use (# tins/day): No Frequency of alcohol use: None Drug Abuse: None Family History: Reviewed & Not Pertinent Patient has suicidal ideation: No Patient has homicidal ideation: No - Medical History Medical History: Negative Renal/ Medical History: Denies: Hx Peritoneal Dialysis Past Surgical History: Reports: Hx Abdominal Surgery, Hx Gynecologic Surgery - laproscopy for endometriosis, Hx Herniorrhaphy - Immunizations Hx Diphtheria, Pertussis, Tetanus Vaccination: No Vertical Provider Document - CONSTITUTIONAL Notes: PHYSICAL EXAMINATION: GENERAL: Well-appearing, well-nourished and in no acute distress. HEAD: Atraumatic, normocephalic. EYES: Pupils equal round and reactive to light, extraocular movements intact, conjunctiva are normal. ENT: Nares patent, oropharynx clear without exudates. Moist mucous membranes. NECK: Normal range of motion, supple without lymphadenopathy LUNGS: Breath sounds clear to auscultation bilaterally and equal. No wheezes rales or rhonchi. HEART: Regular rate and rhythm without murmurs ABDOMEN: Soft, nontender, nondistended abdomen. No guarding, no rebound. No masses appreciated. Female : deferred Musculoskeletal: Normal range of motion, no pitting or edema. No cyanosis. NEUROLOGICAL: Cranial nerves grossly intact. Normal speech, normal gait. Normal sensory, motor exams PSYCH: Normal mood, normal affect. SKIN: Healing surgical incisions to the right lower quadrant, mild surrounding erythema, no warmth or drainage. - INFECTION CONTROL TRAVEL OUTSIDE OF THE [place] IN LAST 30 DAYS: No Course - Re-evaluation Re-evalutation: Laboratory 09/11/19 09/11/19 09/11/19 17:21 17:21 17:21 WBC 8.8 RBC 5.00 Hgb 15.2 Hct 44.4 MCV 89 MCH 30.4 MCHC 34.2 RDW 12.7 Plt Count 327 Lymph % (Auto) 31.6 Talbot % (Auto) 6.1 Eos % (Auto) 3.9 Baso % (Auto) 0.3 Absolute Neuts (auto) 5.1 Absolute Lymphs (auto) 2.8 Absolute Monos (auto) 0.5 Absolute Eos (auto) 0.3 Absolute Basos (auto) 0.0 Seg Neutrophils % 58.1 Sodium 138.8 Potassium 4.5 Chloride 102 Carbon Dioxide 29 Anion Gap 8 BUN 13 Creatinine 0.84 Est GFR ( Amer) > 60 Est GFR (MDRD) Non-Af > 60 Glucose 113 H Calcium 9.9 Total Bilirubin 0.5 Direct Bilirubin 0.1 Neonat Total Bilirubin Not Reportable Neonat Direct Bilirubin Not Reportable Neonat Indirect Bili Not Reportable AST 28 ALT 29 Alkaline Phosphatase 86 Total Protein 7.6 Albumin 4.3 Serum HCG, Qual NEGATIVE Urine Color Urine Appearance Urine pH Ur Specific Evans Urine Protein Urine Glucose (UA) Urine Ketones Urine Blood Urine Nitrite Urine Bilirubin Urine Urobilinogen Ur Leukocyte Esterase Urine WBC (Auto) Squamous Epi Cells Auto Urine Mucus (Auto) Urine Ascorbic Acid 09/11/19 17:25 WBC RBC Hgb Hct MCV MCH MCHC RDW Plt Count Lymph % (Auto) Talbot % (Auto) Eos % (Auto) Baso % (Auto) Absolute Neuts (auto) Absolute Lymphs (auto) Absolute Monos (auto) Absolute Eos (auto) Absolute Basos (auto) Seg Neutrophils % Sodium Potassium Chloride Carbon Dioxide Anion Gap BUN Creatinine Est GFR ( Amer) Est GFR (MDRD) Non-Af Glucose Calcium Total Bilirubin Direct Bilirubin Neonat Total Bilirubin Neonat Direct Bilirubin Neonat Indirect Bili AST ALT Alkaline Phosphatase Total Protein Albumin Serum HCG, Qual Urine Color YELLOW Urine Appearance CLEAR Urine pH 6.0 Ur Specific Evans 1.023 Urine Protein NEGATIVE Urine Glucose (UA) NEGATIVE Urine Ketones NEGATIVE Urine Blood MODERATE H Urine Nitrite NEGATIVE Urine Bilirubin NEGATIVE Urine Urobilinogen NEGATIVE Ur Leukocyte Esterase NEGATIVE Urine WBC (Auto) 2 Squamous Epi Cells Auto 1 Urine Mucus (Auto) OCC Urine Ascorbic Acid NEGATIVE Abdomen Ultrasound 11/17/19 18:53 IMPRESSION: NO SOFT TISSUE MASS, FLUID COLLECTION, OR FOREIGN BODY. 09/11/19 20:22 Consulted general surgery at [facility] to discuss patient. Awaiting callback. Spoke with on-call surgeon from [facility] [email or web address] to discharge patient home, he will have patient schedule a follow-up appointment in the office. Patient verbalizes understanding and agreement with this plan. - Vital Signs Vital signs: Temp Pulse Resp BP Pulse Ox 98.8 F 83 18 129/93 H 98 09/11/19 17:00 09/11/19 17:00 09/11/19 17:00 09/11/19 17:00 09/11/19 17:00 - Laboratory Result Diagrams: 09/11/19 17:21 09/11/19 17:21 Laboratory results interpreted by me: 09/11/19 09/11/19 17:21 17:25 Glucose 113 H Urine Blood MODERATE H Discharge - Discharge Clinical Impression: Postoperative pain Condition: Stable Disposition: HOME, SELF-CARE Additional Instructions: Your work-up today was unremarkable. I called and spoke with someone from your surgical team, Dr. Holbrook Please start taking the antibiotics in case this is early cellulitis. Take medications as prescribed. Call your surgical team Thursday morning to schedule an appointment. Return to the emergency department with any new or worsening symptoms. Prescriptions: Cephalexin [Keflex] 500 mg PO DAILY #20 capsule Oxycodone HCl/Acetaminophen [Percocet 5-325 mg Tablet] 1 - 2 tab PO Q4H PRN #12 tablet PRN Reason: Promethazine HCl [Phenergan 25 mg Tablet] 25 mg PO Q6H #12 tablet Referrals: VARUN PAULINO DO [Primary Care Provider] - Follow up as needed
[2019-09-11] MEDS ORDERED: KETOROLAC TROMETHAMINE 60 MG/2 ML SDV IM ONE (20:42)
[2019-09-11 21:07] VITALS: BP 133/81
--- NOTE | 2019-09-11 22:13 | EKG REPORT ---
SEVERITY:- NORMAL ECG - SINUS RHYTHM : Confirmed by: Lisa Casper MD 11-Sep-2019 22:12:13
== END 2019-09-11 21:08 | disposition home or self-care (01) ==
LOC: ER 16:56
DX: G89.18 Other acute postprocedural pain (principal); R10.31 Right lower quadrant pain; R11.0 Nausea; R07.9 Chest pain, unspecified; Z98.890 Other specified postprocedural states; Z79.899 Other long term (current) drug therapy
CPT/HCPCS: 96376; 99284; 96374; 96375; 36415; 84703; 85025; 80053; 81001; 76705; 93005; 93010; J1885; J2270; J1170; J2405

== ENCOUNTER → 2020-01-06 | Outpatient (CLI) | payer BC ==
[2020-01-06 17:07] LABS: ABSOLUTE BASOPHILS # (AUTO) 0.1 10^3/uL (0.0-0.2); ABSOLUTE EOSINOPHILS # (AUTO) 0.2 10^3/uL (0.0-0.6); ABSOLUTE LYMPHOCYTES (AUTO) 3.1 10^3/uL (0.5-4.7); ABSOLUTE MONOCYTES (AUTO) 0.6 10^3/uL (0.1-1.4); ABSOLUTE NEUT (AUTO) 5.8 10^3/uL (1.7-8.2); BASOPHILS % (AUTO) 0.7 % (0-2); EOSINOPHILS % (AUTO) 2.4 % (0-6); HEMATOCRIT 41.7 % (36.0-47.0); LYMPHOCYTES % (AUTO) 31.4 % (13-45); MEAN CORPUSCULAR HEMOGLOBIN 31.8 pg (27.0-33.4); MEAN CORPUSCULAR VOLUME 88 fl (80-97); MONOCYTES % (AUTO) 6.5 % (3-13); PLATELET COUNT 273 10^3/uL (150-450); RED BLOOD COUNT 4.73 10^6/uL (3.72-5.28); RED CELL DISTRIBUTION WIDTH 12.8 % (11.5-14.0); TOTAL CELLS COUNTED % (AUTO) 100 %; WHITE BLOOD COUNT 9.8 10^3/uL (4.0-10.5)
[2020-01-06 17:40] LABS: ALBUMIN 4.6 g/dL (3.5-5.0); ALKALINE PHOSPHATASE 79 U/L (38-126); ANION GAP 10 (5-19); ASPARTATE AMINO TRANSFERASE 32 U/L (14-36); BILIRUBIN,TOTAL 0.7 mg/dL (0.2-1.3); BLOOD UREA NITROGEN 15 mg/dL (7-20); CALCIUM 9.4 mg/dL (8.4-10.2); CARBON DIOXIDE 20 mmol/L (22-30); CHLORIDE 106 mmol/L (98-107); GLUCOSE 81 mg/dL (75-110); POTASSIUM 4.2 mmol/L (3.6-5.0); TOTAL PROTEIN 7.5 g/dL (6.3-8.2)
== END ==
LOC: LAB 16:45
PROVIDERS: ATTEND Family Medicine
DX: R07.81 Pleurodynia (principal)
CPT/HCPCS: 36415; 80053; 85025; 85379

== ENCOUNTER → 2020-04-19 | Outpatient (CLI) | payer BC ==
--- NOTE | 2020-04-19 15:02 | WOMENS IMAGING REPORT ---
EXAM DESCRIPTION: 3D DX MAMMO BILAT; U/S BREAST UNILAT LIMITED IMAGES COMPLETED DATE/TIME: 04/19/2020 11:11 am; 04/19/2020 11:45 am REASON FOR STUDY: N63.20 UNSPECIFIED LUMP IN THE LEFT BREAST, UNSPECIFIED QUADRANT; LEFT BREAST LUMP /PAIN N63.20 UNSPECIFIED LUMP IN THE LEFT BREAST, UNSPECIFIED QUAD COMPARISON: None. EXAM PARAMETERS: Standard craniocaudal and mediolateral oblique views of each breast recorded using digital acquisition and breast tomosynthesis. Additionally, spot compression images were obtained of the patient- identified palpable abnormality a s well as targeted sonographic evaluation. Read with the assistance of CAD: .[employer] Cal[employer] Teacher Version 9.2 LIMITATIONS: None. FINDINGS: RIGHT BREAST MASSES: No suspicious masses. CALCIFICATIONS: No new or suspicious calcifications. ARCHITECTURAL DISTORTION: None. ASYMMETRY: None noted. OTHER: No other significant findings. LEFT BREAST MASSES: The patient's palpable abnormality correlates to a 2.0 x 1.0 x 2.2 cm well-circumscribed mixe d cystic and solid lesion without associated blood flow on Doppler interrogation. Given history of t rauma, this likely represents a resolving hematoma. Incidental finding is made of an 8 x 7 x 8 mm si mple cyst in the adjacent parenchyma. CALCIFICATIONS: No new or suspicious calcifications. ARCHITECTURAL DISTORTION: None. ASYMMETRY: None noted. OTHER: No other significant finding. IMPRESSION: Given history of trauma, the patient's palpable abnormality correlates to a probable res olving hematoma. BREAST DENSITY: b. There are scattered areas of fibroglandular density. BIRAD: ASSESSMENT: 3 Probably benign finding. Initial short-interval follow-up suggested. RECOMMENDATION: RECOMMENDED FOLLOW UP: Birads 3: The patient will return in 6 months for follow-up i bree. SPECIFIC INTERVENTION/IMAGING/CONSULTATION RECOMMENDED:The patient will return for 6 month follow-up targeted breast ultrasound. COMMUNICATION:The imaging findings were not discussed with the patient. Her referring provider has be en notified of the findings. COMMENT: The patient has been notified of the results by letter per MQSA requirements. Additional no tification policies are in place for contacting patient with suspicious or incomplete findings. Quality ID #225: The [employer] recommends an annual screening mammogram for women aged 40 years or over. This facility utilizes a reminder system to ensure that all patients receive reminder letters, and/or direct phone calls for appointments. This includes reminders for routine scr eening mammograms, diagnostic mammograms, or other Breast Imaging Interventions when appropriate. Th is patient will be placed in the appropriate reminder system. TECHNICAL DOCUMENTATION: FINDING NUMBER: (1) ASSESSMENT: (1) JOB ID: [id number] 2010 [facility]- All Rights Reserved Reading location - IP/workstation name: [email or web address]
== END ==
LOC: WI 10:41
PROVIDERS: ATTEND Surgery
DX: N60.02 Solitary cyst of left breast (principal)
CPT/HCPCS: 76642; 77066; G0279; 77062

== ENCOUNTER → 2020-10-03 | Outpatient (CLI) | payer BC ==
--- NOTE | 2020-10-03 11:06 | WOMENS IMAGING REPORT ---
EXAM DESCRIPTION: U/S BREAST UNILAT LIMITED IMAGES COMPLETED DATE/TIME: 10/03/2020 9:36 am REASON FOR STUDY: R92.8 OTHER ABNORMAL AND INCONCLUSIVE FINDINGS ON DIAGNOSTIC IMAGING OF TARA R92.8 OTH ABN AND INCONCLUSIVE FINDINGS ON DX IMAGING OF TARA patient had breast contusion medial left ren[address] st, hematoma aspirated by Dr. Camacho. COMPARISON: Ultrasound 04/19/2020 Mammograms 04/19/2020 TECHNIQUE: Real-time and static grayscale imaging performed of the left breast targeted to the area of clinical and mammographic concern. Selected color Doppler images recorded. LIMITATIONS: None. FINDINGS: In the medial left breast, at about the 8 to 9 o'clock position, 10 cm from the nipple the re is a well-circumscribed hypoechoic area of fat necrosis measuring about 1.8 by 1.1 x 0.8 cm in siz e. This is smaller than on 04/19/2020, when it measured about 2 x 2.2 x 1 cm in size. This correlates wi th a persistent palpable abnormality just deep to the skin indicated by the patient. This is a benig n finding which requires no further specific followup (BI-RADS 2). Deeper in the lower inner quadrant, left breast about the 8 to 9 o'clock position, an anechoic cyst i s present measuring 7 x 6 x 5 mm in size. This is smaller than on prior ultrasound exam when it measured 8 x 8 x 7 mm in size. This finding co rrelates with an oil cyst on mammogram 04/19/2020, and is a benign finding which requires no further s pecific followup (BI-RADS 2). IMPRESSION: Benign fat necrosis in the medial left breast BIRAD: 2 Benign findings. RECOMMENDATION: RECOMMENDED FOLLOW-UP: Follow-up as clinically indicated. COMMENT: The [employer] ([employer]) has developed recommendations for screening MRI of the breasts in certain patient populations, to be used in conjunction with mammography. Breast MRI s urveillance may be appropriate for women with more than 20% lifetime risk of developing breast cancer as determined by genetic testing, significant family history of the disease, or history of mantle r adiation for Hodgkins Disease. [employer] Practice Guidelines 2008. TECHNICAL DOCUMENTATION: JOB ID: [id number] 2010 [employer]- All Rights Reserved Reading location - IP/workstation name: [facility]
== END ==
LOC: WI 09:04
PROVIDERS: ATTEND Surgery
DX: N64.1 Fat necrosis of breast (principal)
CPT/HCPCS: 76642